=== PATIENT | male | born 1965 | race Caucasian/White ===

== ENCOUNTER 2021-06-17 18:41 | Emergency (ER) | payer MEDICAID, SELFPAY ==
[2021-06-17 18:45] VITALS: BP 207/111; PULSE 96; RESP 18; TEMP 36.6; O2SAT 99; BMI 26.5
--- NOTE | 2021-06-17 20:28 | ED_ITS ---
HPI - General Adult General Chief complaint: General Medical Stated complaint: High BP No Meds Time Seen by Provider: 06/17/21 20:22 Source: patient Mode of arrival: ambulatory Limitations: no limitations History of Present Illness HPI narrative: 55 y/o male with history of HTN previously on metoprolol, enalopril, and clonidine presents to the ER for medication refill. He reports moving here from [place] about 6 weeks ago and he ran out of his 3 blood pressure medications 2 weeks ago. He has no symptoms, including no headache, chest pain, vision changes, nausea. He has had normal urine output. He is ea ting and drinking normally. He feels like his normal self and has no physical complaints. also would like to get a 2nd opinion about the question of a previous diagnosis of leukemia. He states in [place] he saw director of adult epilepsy who was concerned about leukemia with plans for biopsy however this was never completed. This was about 6 months ago. MD complaint: Hypertension Onset (ago): unknown Severity: moderate Relieving factors: none Exacerbating factors: none Associated symptoms: denies other symptoms Treatments prior to arrival: none Related Data Previous Rx's Medication Instructions Recorded clonidine HCl 0.2 mg tablet 0.2 mg PO BID #60 tab 06/17/21 metoprolol tartrate 50 mg tablet 50 mg PO BID #60 tab 06/17/21 Allergies Allergy/AdvReac Type Severity Reaction Status Date / Time No Known Allergies Allergy Verified 06/17/21 21:33 Review of Systems Review of Systems: Constitutional: No Fever, No Chills ENT/Mouth: No sore throat, No Rhinorrhea, No Swallowing Difficulty Eyes: No vision changes Cardiovascular: No Chest Pain, No SOB, No Orthopnea, No Edema Respiratory: No Cough, No Sputum, No Wheezing, No dyspnea Gastrointestinal: No Nausea, No Vomiting, No Diarrhea, No abdominal Pain Genitourinary: No Dysuria, No Urinary Frequency, No Hematuria Musculoskeletal: No joint pain, No Myalgias Skin: No Skin Lesions, No rash Neuro: No Weakness, No Numbness, No Dizziness, No Headache Psych: No Anxiety/Panic, No Depression Heme/Lymph: No Bruising, No Lymphadenopathy Endocrine: No Polyuria, No Polydipsia PMFSH Social History Social History Advance Directives: No Physical Exam Vital Signs: Vital Signs: Last Vital Signs Temp 98 F 06/17/21 18:45 Pulse 81 06/17/21 22:25 Resp 18 06/17/21 22:25 BP 167/100 H 06/17/21 22:25 Pulse Ox 97 06/17/21 22:25 Body Mass Index 26.5 Appearance: Alert. Oriented X3. No acute distress. Eyes: Pupils equal, round and reactive to light. ENT: Pharynx normal. Neck: Normal inspection. Neck supple. CVS: Normal heart rate and rhythm. Pulses normal. Respiratory: No respiratory distress. Breath sounds normal. Abdomen: Soft and nontender. +BS x4 Skin: Skin warm and dry. Normal skin color. Normal skin turgor. No rashes. Extremities: No lower extremity edema. Neuro: Oriented X 3. No motor deficit. No sensory deficit. Course Course Course Narrative: 55-year-old male with history of hypertension previously on 3 antihypertensive agents comes to the ER presenting for medication refill. He has no primary care doctor as he recently moved here from [place]. He has no signs or symptoms of hypertensive emergency. He appears well and has no no distress. He would like to go home. Will check basic lab workup to assess kidney function, check UA. He also reports that he may have leukemia as per a director of adult epilepsy in [place]. He would like a 2nd opinion. Will check CBC. Reevaluation(s) Reevaluation #1: CBC showing mild anemia and leukocytosis with a took an of 25.5K. This is concerning for possible ongoing blood cancer given it is chronic in nature per his report. ANC elevated. Will plan to refer to hematology for further evaluation. He is agreeable. Blood pressure significantly improved after dose of metoprolol and clonidine. Blood pressure 167/100. He continues to be chest pain-free, denied headaches and vision changes. He feels well. He is lab work did show a creatinine of 1.66, therefore will hold off on continuing the BACILIO-inhibitor for now. Will plan to double the metoprolol to 50 mg b.i.d. and continue the clonidine 0.2 b.i.d.. Will give 1 month's worth to give him time to set up with a primary care doctor. Plan was discussed with patient and his cousin at the bedside. They are in agreement and are stable for discharge home. Medical Decision Making Lab Data Result diagrams: 06/17/21 21:30 06/17/21 21:30 Labs: Lab Results 06/17/21 06/17/21 06/17/21 Range/Units 21:30 21:30 21:30 WBC 25.5 H (4.8-10.8) X10*3/uL RBC 4.01 L (4.60-5.80) X10*6/uL Hgb 13.7 L (14.0-18.0) g/dl Hct 39.9 L (42.0-52.0) % MCV 99.5 H (80.0-98.0) fL MCH 34.2 H (27.0-33.0) pg MCHC 34.3 (31.0-36.0) g/dl RDW 13.8 (11.0-16.0) % Plt Count 343 (160-400) X10*3/uL MPV 10.2 (9.4-12.4) fL Immature Gran % (Auto) 0.6 H (0.0-0.4) % Neut % (Auto) 70.2 (45-73) % Lymph % (Auto) 21.6 (20-40) % [place] % (Auto) 6.1 (2-11) % Eos % (Auto) 1.1 (0-4) % Baso % (Auto) 0.4 (0-2) % Lymph # (Auto) 5.5 H (1.2-4.9) X10*3/uL [place] # (Auto) 1.5 H (0.1-1.2) X10*3/uL Eos # (Auto) 0.3 (0.0-0.4) X10*3/uL Baso # (Auto) 0.1 (0.0-0.2) X10*3/uL Abs Immat Gran (auto) 0.15 H (0.00-0.03) X10*3/uL Absolute Neuts (auto) 17.9 H (2.0-8.3) x10*3/uL Absolute Nucleated RBC 0.000 (0.0-0.012) X10*3/uL Nucleated RBC % (auto) 0.0 (0.0-0.2) /100WBC Smear Tech's Comments VERIFIED Sodium 138 (135-145) mmol/L Potassium 2.8 L (3.3-5.1) mmol/L Chloride 100 (96-108) mmol/L Carbon Dioxide 29 (22-29) mmol/L Anion Gap 12 (12-20) BUN 23 H (9-16) mg/dL Creatinine 1.66 H (0.5-1.4) mg/dL Estim Creat Clear Calc 39.5 Estimated GFR 43 Random Glucose 157 H (60-115) mg/dL Calcium 9.2 (8.4-10.2) mg/dL Magnesium 1.9 (1.6-2.6) mg/dL Urine Color STRAW Urine Appearance CLEAR Urine pH 6.0 (5.0-8.0) Ur Specific Avenue 1.010 (1.005-1.025) Urine Protein 1+ H (NEG-TRACE) MG/DL Urine Glucose (UA) NEG (NEG) MG/DL Urine Ketones NEG (NEG) MG/DL Urine Blood 1+ H (NEG) Urine Nitrite NEG (NEG) Ur Leukocyte Esterase NEG (NEG) Urine RBC 1-4 (0) /HPF Urine WBC 0 (0-4) /HPF Ur Squamous Epith Cells 1+ /LPF Ur Renal Epithelial Cell TRACE /LPF Tyrosine Crystals TRACE /LPF Urine Bacteria NONE /LPF Urine Mucus 1+ /LPF Critical Care Time Critical Care Time Critical Care Time: No Discharge Plan Discharge Clinical Impression: Hypertension Qualifiers: Hypertension type: unspecified Qualified Code(s): I10 - Essential (primary) hypertension Patient Disposition: Home, Self-Care Instructions: Chronic Kidney Disease (ED), Chronic Hypertension (ED) Additional Instructions: Your blood workup today showed elevated white blood cell count. You need to follow up with the blood doctor for this. Name and number below. Your blood pressure was significantly elevated when you came in. It improved with medications. Take the prescribed medications for blood pressure as directed. Follow-up with a primary care doctor for further management. Your lab workup showed some mild abnormal kidney function. This is likely chronic from her uncontrolled blood pressure. Is important to keep your blood pressure under control to prevent worsening kidney failure. If you develop new or worsening symptoms call 911 or come back to the ER for further evaluation. Prescriptions: New metoprolol tartrate 50 mg tablet 50 mg PO BID Qty: 60 RF: 0 clonidine HCl 0.2 mg tablet 0.2 mg PO BID Qty: 60 RF: 0 Referrals: Herson Villavicencio MD [Physician] - 2 days (Leukocytosis with previous diagnosis of leukemia) Print Language: Danish
[2021-06-17 21:33] VITALS: BP 195/98; PULSE 85
[2021-06-17] MEDS: cloNIDine HCL 0.2 MG TABLET PO (21:33)
[2021-06-17 21:35] VITALS: BP 195/98; PULSE 84
[2021-06-17 21:35] LABS: Basophils Absolute Auto 0.1 X10*3/uL (0.0-0.2); Basophils Percent Auto 0.4 % (0-2); Eosinophils Absolute Auto 0.3 X10*3/uL (0.0-0.4); Eosinophils Percent Auto 1.1 % (0-4); Hematocrit 39.9 % (42.0-52.0); Hemoglobin 13.7 g/dl (14.0-18.0); Imm Gran Abs Auto 0.15 X10*3/uL (0.00-0.03); Imm Gran Pct Auto 0.6 % (0.0-0.4); Lymphocytes Absolute Auto 5.5 X10*3/uL (1.2-4.9); Lymphocytes Percent Auto 21.6 % (20-40); MANUAL DIFF FLAG SCAN; Mean Corpuscular HGB Conc 34.3 g/dl (31.0-36.0); Mean Corpuscular Hemoglobin 34.2 pg (27.0-33.0); Mean Corpuscular Volume 99.5 fL (80.0-98.0); Mean Platelet Volume 10.2 fL (9.4-12.4); Monocytes Absolute Auto 1.5 X10*3/uL (0.1-1.2); Monocytes Percent Auto 6.1 % (2-11); Neutrophils Absolute Auto 17.9 x10*3/uL (2.0-8.3); Neutrophils Percent Auto 70.2 % (45-73); Platelet Count 343 X10*3/uL (160-400); Red Blood Count 4.01 X10*6/uL (4.60-5.80); Red Cell Distribution Width 13.8 % (11.0-16.0); SCAN SMEAR FLAG 1; White Blood Count 25.5 X10*3/uL (4.8-10.8)
[2021-06-17] MEDS: Metoprolol Tartrate 25 MG TABLET PO (21:35)
[2021-06-17 21:36] LABS: Appearance Urine CLEAR; Color Urine STRAW; Glucose Urine UA NEG (NEG); Leukocyte Esterase Urine NEG (NEG); Nitrite Urine NEG (NEG); UACC Culture Trigger NO; Urine Blood 1+ (NEG); Urine Ketones NEG (NEG); Urine Protein 1+ MG/DL (NEG-TRACE)
[2021-06-17 21:37] VITALS: BP 195/98; PULSE 88; RESP 18; O2SAT 97
[2021-06-17 21:46] LABS: Renal Epithelial Cells Urine TRACE /LPF; Squamous Epithelial Cell Urine 1+ /LPF; Tyrosine Crystal Urine TRACE /LPF; WBC Urine 0 /HPF (0-4)
[2021-06-17 21:47] LABS: Mucus Urine 1+ /LPF
[2021-06-17 21:55] LABS: Anion Gap 12 (12-20); Blood Urea Nitrogen 23 mg/dL (9-16); Calcium 9.2 mg/dL (8.4-10.2); Carbon Dioxide 29 mmol/L (22-29); Chloride 100 mmol/L (96-108); Creatinine Clr Calc Pharmacy 39.5; Estimated Glomerular Filt Rate 43; Glucose Random 157 mg/dL (60-115); Magnesium 1.9 mg/dL (1.6-2.6); Potassium 2.8 mmol/L (3.3-5.1); Sodium 138 mmol/L (135-145)
[2021-06-17 22:06] LABS: SLIDE REVIEW VERIFIED
[2021-06-17 22:25] VITALS: BP 167/100; PULSE 81; RESP 18; O2SAT 97
[2021-06-17] MEDS: Potassium Chloride ER 20 MEQ TAB.ER.PRT 40 MEQ PO (22:39)
== END 2021-06-17 22:41 | disposition home or self-care (01) ==
PROVIDERS: Physician Assistant; Emergency Provider Student in an Organized Health Care Education/Training Program
DX: I10 Essential (primary) hypertension (principal); D64.9 Anemia, unspecified; D72.829 Elevated white blood cell count, unspecified
CPT/HCPCS: 36415; 80048; 81001; 83735; 85025; 99283